=== PATIENT | female | born 1990 | race Two or more races ===

== ENCOUNTER 2019-01-10 20:12 | Emergency (ER) | payer MEDICAID, OTHER ==
[~2019-01-10] VITALS: Ht 162.6 cm; Wt 69.4 kg
[2019-01-10 20:40] VITALS: BP 146/78
== END 2019-01-10 21:17 | disposition home or self-care (01) ==
LOC: ER 20:14
DX: M54.2 Cervicalgia (principal)

== ENCOUNTER 2019-07-24 16:13 | Emergency (ER) | payer MEDICAID ==
[~2019-07-24] VITALS: Ht 162.6 cm; Wt 70.8 kg
--- NOTE | 2019-07-24 16:25 | NUR ---
"Cough/congestion/fever/earache x1wk. NOT better" Patient a/ox4, breathing even and unlabored, no sob noted. Needs attended, kept comfortable. Will continue to monitor.
[2019-07-24] MEDS ORDERED: IBUPROFEN 600 MG TABLET PO ONE ×2 (16:37→17:00)
[2019-07-24] MEDS ORDERED: ONDANSETRON HCL/PF 4 MG/2 ML VIAL ONE (16:37)
[2019-07-24] MEDS ORDERED: IV NS 0.9% 1,000 ML BAG IV ONE (17:00)
[2019-07-24] MEDS ORDERED: ONDANSETRON HCL/PF 4 MG/2 ML VIAL IVP ONE (17:00)
--- NOTE | 2019-07-24 18:07 | NUR ---
IV removed. Catheter intact and site benign. Pressure and 4x4 applied to site. No bleeding noted.Patient discharged to home in stable condition. Written and verbal after care instructions given. Patient verbalizes understanding of instruction.
[2019-07-24 18:10] VITALS: BP 129/83
== END 2019-07-24 18:10 | disposition home or self-care (01) ==
LOC: ER 16:15
DX: J06.9 Acute upper respiratory infection, unspecified (principal)
CPT/HCPCS: 71045; 96374; 99283; J2405; J7030

== ENCOUNTER 2022-08-02 15:40 | Emergency (ER) | payer OTHER ==
[~2022-08-02] VITALS: Ht 162.6 cm; Wt 69.9 kg
--- NOTE | 2022-08-02 15:50 | NUR ---
RECEIVED PT 32 YRS FEMALE CAME FROM HOME C/O PAIN IN BOTH LOWER EXTRAMITY S/P LAIPOSUITION 10 day ago abdomin soft NONE TNEDER TO TOUCH no pain no N/V
--- NOTE | 2022-08-02 15:50 | NUR ---
Kamla haynes in ED - 08/02/22 at 1907 by ISABEL RECEIVED PT 32 YRS FEMALE WALKIN IN FROM HOME c/o pain in both lower extramity s/p liposuction
--- NOTE | 2022-08-02 16:15 | NUR ---
SEEN BY DR. RODRIGUEZ AT BED SIDE
--- NOTE | 2022-08-02 16:33 | NUR ---
BLOOD DROW BY LAB TACH AT BED SIDE
[2022-08-02 17:16] LABS: BASOPHILS % (AUTO) 0.3 % (0.0-2.0); EOSINOPHILS % (AUTO) 1.2 % (0.0-6.0); HEMATOCRIT 37 % (33-45); HEMOGLOBIN 12.5 g/dL (11.5-14.8); LYMPHOCYTES # (AUTO) 2.5 K/uL (0.8-4.8); LYMPHOCYTES % (AUTO) 23.4 % (20.0-44.0); MEAN CORPUSCULAR HGB CONC 34 g/dl (31.0-36.0); MEAN CORPUSCULAR VOLUME 92 fL (82-100); MONOCYTES # (AUTO) 0.6 K/uL (0.1-1.30); MONOCYTES % (AUTO) 5.6 % (2.0-12.0); NEUTROPHILS # (AUTO) 7.5 K/uL (1.8-8.9); NEUTROPHILS % (AUTO) 69.5 % (43.0-81.0); PLATELET COUNT (AUTO) 348 K/uL (150-450); RED BLOOD CELL COUNT(AUTO) 4.04 MIL/uL (4.0-5.2); WHITE BLOOD COUNT (AUTO) 10.8 K/uL (4.3-11.0)
--- NOTE | 2022-08-02 17:25 | NUR ---
VITAL SIGNS UPDATED.
[2022-08-02 17:30] LABS: ALBUMIN 3.6 g/dL (3.4-5.0); BILIRUBIN,DIRECT 0.1 mg/dL (0.0-0.2); BILIRUBIN,TOTAL 0.2 mg/dL (0.2-1.0); CALCIUM, SERUM 9.1 mg/dL (8.5-10.1); CREATININE 0.7 mg/dL (0.6-1.3); POTASSIUM 3.9 mmol/L (3.5-5.1); TOTAL PROTEIN, SERUM 7.2 g/dL (6.4-8.2)
[2022-08-02 17:38] LABS: MAGNESIUM 2.1 mg/dL (1.8-2.4)
--- NOTE | 2022-08-02 18:25 | NUR ---
AWAITING DIPOSITION OF PATIENT BY .
--- NOTE | 2022-08-02 18:45 | NUR ---
Patient discharged to home in stable condition. Written and verbal after care instructions given. Patient verbalizes understanding of instruction.
[2022-08-02 18:59] VITALS: BP 119/70
== END 2022-08-02 18:50 | disposition home or self-care (01) ==
LOC: MERGE 15:40 → ER 16:55
DX: R20.2 Paresthesia of skin (principal); Z60.2 Problems related to living alone
CPT/HCPCS: 36415; 80048-TC; 80076-TC; 83735-TC; 84702-TC; 85025-TC

== ENCOUNTER 2022-08-12 14:50 | Emergency (ER) | payer OTHER ==
[~2022-08-12] VITALS: Ht 162.6 cm; Wt 68.0 kg
[2022-08-12 14:50] VITALS: BP 127/66
--- NOTE | 2022-08-12 14:50 | NUR ---
BIBS C/O HIP PAIN S/P HAVING LIPOSUCTION AND HIP FAT TRANSFER PROCEDURE 3 WEEKS AGO AND HAS HAD INCREASED PAIN, PAIN 6/10.
--- NOTE | 2022-08-12 15:56 | NUR ---
TO ER BED 2, NO CHANGE IN CONDITION
--- NOTE | 2022-08-12 16:49 | NUR ---
DR. GARCIA AT BEDSIDE.
--- NOTE | 2022-08-12 17:56 | NUR ---
PT BACK FROM CT VIA WHEELCHAIR.
[2022-08-12] MEDS ORDERED: GABA-532 PO (18:48)
--- NOTE | 2022-08-12 18:50 | NUR ---
Patient discharged to home in stable condition. Written and verbal after care instructions given. Patient verbalizes understanding of instruction.
== END 2022-08-12 19:11 | disposition home or self-care (01) ==
LOC: ER 14:52
DX: R20.2 Paresthesia of skin (principal)
CPT/HCPCS: 72131-TC